=== PATIENT | female | born 1985 | race Asian ===

== ENCOUNTER 2017-01-06 09:10 | Emergency (ER) | payer MEDICAID ==
[~2017-01-06] VITALS: Ht 160 cm; Wt 83.0 kg
[2017-01-06 10:03] VITALS: BP 114/72
== END 2017-01-06 10:03 | disposition home or self-care (01) ==
LOC: ED 09:10
DX: O90.89 Other complications of the puerperium, not elsewhere classified (principal); N64.4 Mastodynia